=== PATIENT | male | born 1970 | race Caucasian/White ===

== ENCOUNTER 2020-08-22 13:01 | Emergency (ER) | payer OTHER, SELFPAY ==
[2020-08-22 13:02] VITALS: BP 148/86; PULSE 104; RESP 16; TEMP 36.3; O2SAT 99; BMI 27.5
--- NOTE | 2020-08-22 14:06 | CT_ITS ---
STUDY: CT ABDOMEN AND PELVIS WITH CONTRAST REASON FOR EXAM: Male, 50 years old. Left lower quadrant abdominal pain with peritoniti -- IV PO Contrast RADIATION DOSAGE (If Supplied By Facility): CTDIvol = ( 8.95 ) mGy, DLP = ( 566.89 ) mGycm TECHNIQUE: Transaxial images were obtained from the dome of the diaphragm to the symphysis pubis with oral contrast. Oral and amp; IV Gastrografin and amp; 100mL Isovue-370 was administered. Sagittal and coronal images were reconstructed. Individualized dose optimization techniques were used for this CT. COMPARISON: None. FINDINGS: The visualized lung bases are unremarkable. The visualized portions of the heart are within normal limits. Normal liver. Normal gallbladder and extrahepatic biliary system. Normal spleen. Normal pancreas. Normal bilateral adrenal glands. Normal right kidney. Normal left kidney. Normal visualized stomach. Normal small intestine. There is diverticulosis, with thickening of the colon wall, and pericolonic inflammation changes consistent with acute diverticulitis. No loculated fluid collection to suggest abscess. No pneumoperitoneum to suggest perforation. The appendix is visualized and appears normal. Normal abdominal aorta. Normal inferior vena cava. Normal retroperitoneum. Normal urinary bladder. There is a small umbilical hernia containing fat. Normal osseous structures. CT/Abdomen/Pelvis WITH Contrast IMPRESSION: Sigmoid diverticulitis without abscess or perforation. Electronically Signed: Juan Gill MD at 16:24 EDT Tel , Service support ,
[2020-08-22 14:22] LABS: Absolute Lymphocyte Count 1.09 X10^3/uL (0.83-4.51); Absolute Neutrophil Count 8.4 X10^3/uL (2.0-7.7); Basophil# 0.03 X10^3/uL; Basophil% 0.3 % (0-1); Eosinophil# 0.04 X10^3/uL; Eosinophils% 0.4 % (0-5); Hematocrit 41.6 % (40-54); Hemoglobin 13.8 g/dL (13.0-16.5); Lymphocyte # 1.09 X10^3/ul (0.83-4.51); Lymphocyte % 10.3 % (19-41); Mean Corp Hgb Conc 33.2 g/dL (32-36); Mean Corpuscular Hgb 29.9 pg (27.0-32.0); Mean Platelet Vol. 8.9 fl (6.2-12.0); Monocyte# 0.96 X10^3/uL; Monocyte% 9.1 % (0-10); NRBC Flagged by Analyzer 0 % (0-5); Neutrophil # 8.44 X10^3/uL (2.7-7.7); Neutrophil % 79.6 % (47-70); Platelet Count 222 K/mm3 (150-450); RBC Distribution Width CV 12.4 % (11.6-14.6); RBC Distribution Width SD 40.8 fl (35.1-43.9); Red Blood Count 4.62 M/mm3 (4.6-6.2); White Blood Count 10.6 K/mm3 (4.4-11.0)
[2020-08-22 14:32] LABS: Anion Gap 2 (5-15); BUN 8 mg/dL (7-18); BUN/Creat Ratio 9.5 RATIO (10-20); Chloride 104 mmol/L (98-107); Creatinine, Serum 0.85 mg/dL (0.70-1.30); EST Glomerular Filtration Rate 102 mL/min (>60); Est Glom Filt Rate - Afr Amer 124 mL/min (>60); Estimated Creatinine Clearance 98.29 ml/min; Glucose 107 mg/dL (74-106); Potassium 3.9 mmol/L (3.5-5.1); Sodium Level 137 mmol/L (136-145)
[2020-08-22] MEDS: Morphine 4 MG/ML Syringe IV (14:35)
[2020-08-22] MEDS: Ondansetron 4 MG/2 ML Vial IV (14:35)
--- NOTE | 2020-08-22 14:37 | ED.VIS.GI ---
HPI HPI - GI History of Present Illness Chief Complaint: Abd Pain Detail of Chief Complaint: Left-sided lower abdominal pain with fever and chills that started last rimma Informant: patient Abdominal Pain/Flank Pain Onset: Yesterday Context: Sudden Onset Timing: Continuous (Pain has been continuous. The fever has not.) Quality: Aching and Dull Location: LLQ Current Severity: Mild Maximum Severity: Severe Worsened by: Car ride, Movement and - (Palpation.) Relieved by: Nothing Nausea/Vomiting/Emesis GI Symptom: Positive for Nausea; Negative for Vomiting Onset: Yesterday Severity: Mild Diarrhea/Melena/Hematochezia GI Symptom: Negative for Diarrhea, Melena and Hematochezia Associated Symptoms Associated Symptoms: Negative for Dysuria, Frequency and Hematuria Narrative Narrative: Patient is a 50-year-old male with no sniffing past medical history who has never had a colonoscopy and presents with left lower quadrant abdominal pain started yesterday with subjective fever shaking chills. Onset of symptoms yesterday. Walking does increase the pain. He has nausea with decreased appetite. He denies vomiting or diarrhea. Denies black or maroon-colored stool. He denies dysuria, frequency, urgency or hematuria. He denies allergies to any antibiotics. He has had no recent ill contacts. He denies headache, visual, ocular auditory symptoms. He denies cardiac or respiratory symptoms. There is no history of trauma. He denies rash. He denies neurologic symptoms. Prior similar symptoms: No Recent Illness/Hospitalization: No PFSH PFSH Medical History (Updated 08/22/20 @ 16:[address] 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 Tim Gill MD) Smoking Status: Current every day smoker alcohol intake: current alcohol intake frequency: holidays/special occasions only substance use type: does not use ROS ROS ED Constitutional Constitutional ED: Reports chills, fever(s), subjective and sweats ENT ENT ED: Denies ear pain, rhinorrhea or sore throat Cardiovascular Cardiovascular: Denies chest pain, palpitations or racing heartbeat Respiratory/Chest Respiratory/Chest: Denies cough, dyspnea or dyspnea on exertion Gastrointestinal Gastrointestinal: Reports abdominal pain and nausea; Denies constipation, diarrhea, melena or vomiting Genitourinary Genitourinary ED: Denies dysuria, hematuria or urinary frequency Musculoskeletal Musculoskeletal: Denies arthralgias, back pain, myalgias or neck pain Integumentary Denies Abrasions or rash Neurologic Neurologic: Denies headache(s) or weakness Endocrine Endocrinology: Denies polydipsia, polyphagia or polyuria Hematologic/Lymphatic Hematologic/Lymphatic: Denies easy bruising EXAM Physical Exam Const Vital Signs: 08/22/20 13:02 08/22/20 15:24 Temperature 97.4 F L 99.1 F Temperature Source Temporal Oral Pulse Rate 104 H 97 Respiratory Rate 16 18 Blood Pressure 148/86 H 154/91 H Blood Pressure Mean 106 112 Pulse Ox 99 97 Oxygen Delivery Method Room Air Room Air Positive well nourished and well developed General Appearance ED: well developed HEENT Reports TM's clear and dry mucous membranes normocephalic and atraumatic Tympanic Membrane ED: Yes TM's clear Mouth ED: Yes dry mucous membranes Mouth: dry mucous membranes Eyes PERRL and EOMs intact bilaterally General Eye ED: Negative for pale conjunctiva or scleral icterus Neck no lymphadenopathy, supple and no JVD Resp normal respiratory effort and clear to auscultation bilaterally Cardio regular rate, regular rhythm, S1 normal heart sound, S2 normal heart sound and no murmurs GI no masses; Negative for non-tender or non-distended GI Narrative: Patient has percussion tenderness left lower quadrant and referred pain to the left lower quadrant. He also has significant tenderness in the inguinal area. There is no inguinal lymphadenopathy. There is no evidence of hernia. Testes descended bilaterally. Inspection: abdominal distention Auscultation: hypoactive bowel sounds; Negative for normoactive bowel sounds Palpation: soft, tender, guarding and rebound tenderness present; Negative for rigid, hepatomegaly, splenomegaly or hernia Back/Spine no CVA tenderness Cervical Spine: Negative for cervical spine tenderness Thoracic Spine / Upper Back: Negative for thoracic spinal tenderness Lumbar Spine / Lower Back: Negative for lumbar spinal tenderness Extremity full ROM General Extremety ED: Negative for edema General Extremity: Negative for edema Neuro CN's II-XII intact bilaterally and no sensory deficits noted Sensorium / Orientation: alert, oriented to person, oriented to place and oriented to time Motor Exam: strength 5/5 throughout Psych mental status grossly normal and thought process normal Skin no wounds General Skin Exam: Negative for jaundice Lesions: no lesions Rashes: no rashes MDM MDM MDM Narrative Medical decision making narrative: With reported fever, chills peritoneal findings left lower quadrant suspect patient has acute diverticulitis. CT of the abdomen pelvis with p.o. and IV contrast was obtained to assess for diverticulitis, abscess and/or perforation. Appropriate blood work was obtained. Patient was treated with 4.5 g of Zosyn IV piggyback. Lab Data Attestation: I reviewed the patient's lab results. Labs: Laboratory Results - last 24 hr 08/22/20 08/22/20 08/22/20 13:55 13:55 14:40 WBC 10.6 RBC 4.62 Hgb 13.8 Hct 41.6 MCV 90.0 MCH 29.9 MCHC 33.2 RDW Std Deviation 40.8 RDW Coeff of Shree 12.4 Plt Count 222 MPV 8.9 Immature Gran % (Auto) 0.300 Neut % (Auto) 79.6 H Lymph % (Auto) 10.3 L [place] % (Auto) 9.1 Eos % (Auto) 0.4 Baso % (Auto) 0.3 Absolute Neuts (auto) 8.4 H Absolute Lymphs (auto) 1.09 Nucleated RBC % 0 Sodium 137 Potassium 3.9 Chloride 104 Carbon Dioxide 31.0 Anion Gap 2 L BUN 8 Creatinine 0.85 Estim Creat Clear Calc 98.29 Est GFR (MDRD) Af Amer 124 Est GFR (MDRD) Non-Af 102 BUN/Creatinine Ratio 9.5 L Glucose 107 H Lactic Acid 0.7 Calcium 9.0 CBC, H&H and differential are unremarkable. Lactate is normal. Electrolyte panel is unremarkable. Patient's CAT scan does reveal acute sigmoid diverticulitis without abscess or perforation. Since patient vital signs are within normal limits and he is afebrile with normal white count patient will be discharged with prescription for Augmentin. He understands there is a possible he may return. Radiography Diagnostic Testing: Radiology Impression Abdomen/Pelvis CT 08/22/20 14:06 IMPRESSION: Sigmoid diverticulitis without abscess or perforation. Electronically Signed: Juan Gill MD at 16:24 EDT Tel , Service support , Discharge Plan Triage Chief Complaint: Abd Pain ED Provider: Tim Gill Dx/Rx/DC Orders Clinical Impression: Diverticulitis of sigmoid colon, Localized peritonitis Prescriptions: New oxycodone-acetaminophen [oxycodone-acetaminophen] 1 TABLET tablet 1 tab PO Q6H PRN PRN (Reason: Pain) 3 Days Qty: 12 RF: 0 amoxicillin-pot clavulanate [amoxicillin-pot clavulanate] 875 MG tablet 875 mg PO Q12H Qty: 20 RF: 0 No Action vitamin B complex [Super B Complex] Tablet 1 tab PO DAILY RF: 0 Primary Care Provider: Care Physician,No Primary Referrals: Care Physician,No Primary [Primary Care Provider] -
[2020-08-22 15:10] LABS: Lactic Acid 0.7 mmol/L (0.4-1.9)
[2020-08-22 15:24] VITALS: BP 154/91; PULSE 97; RESP 18; TEMP 37.3; O2SAT 97
[2020-08-22 16:42] VITALS: RESP 16
== END 2020-08-22 16:43 | disposition home or self-care (01) ==
LOC: ED 14:35
PROVIDERS: Emergency Provider Emergency Medicine
DX: K57.32 Diverticulitis of large intestine without perforation or abscess without bleeding (principal); K65.9 Peritonitis, unspecified; F17.200 Nicotine dependence, unspecified, uncomplicated
CPT/HCPCS: 74177; 80048; 83605; 85025; 96365; 96375; 99284; J7040; Q9967; A4216; J2405